=== PATIENT | female | born 1980 | race African-American/Black ===

== ENCOUNTER 2017-07-23 11:44 | Emergency (ER) | payer OTHER ==
[~2017-07-23] VITALS: Ht 157.5 cm; Wt 63.5 kg
[~2017-07-23 11:44] MED LIST: AZITHROMYCIN 2250 MG PO; BACTRIM DS TAB1 EACH PO; DARVOCET-N 1001 EACH PO; MUCINEX DM TABL1 TA1 PO; NOHOMEMEDICATIONS; NORCO 5-325 TA1 EACH PO; ZOFRAN ODT4 MG PO; ZPAK PO
== END 2017-07-23 14:10 | disposition home or self-care (01) ==
LOC: ER 11:44
DX: S61.012A Laceration without foreign body of left thumb without damage to nail, initial encounter (principal); F17.210 Nicotine dependence, cigarettes, uncomplicated; W26.0XXA Contact with knife, initial encounter; Y93.89 Activity, other specified; Y92.89 Other specified places as the place of occurrence of the external cause; Y99.8 Other external cause status